=== PATIENT | male | born 2000 | race Caucasian/White ===

== ENCOUNTER 2022-11-08 20:56 | Emergency (ER) | payer OTHER, SELFPAY ==
[2022-11-08 20:58] VITALS: BP 132/94; PULSE 111; RESP 24; TEMP 37.9; O2SAT 99; BMI 13.5
[2022-11-08] MEDS: 0.9% Normal Saline 1,000 ML 999 ML IV ×2 (21:00→22:55)
--- NOTE | 2022-11-08 21:23 | EKG12_ITS ---
Test Reason : DYSRHYTHMIA Blood Pressure : / mmHG Vent. Rate : 117 BPM Atrial Rate : 117 BPM P-R Int : 134 ms QRS Dur : 078 ms QT Int : 324 ms P-R-T Axes : 067 083 069 degrees QTc Int : 451 ms Sinus tachycardia Otherwise normal ECG Confirmed by SILVIA KNAPP, JUSTINO ([id number]), marketing editor JOSE CRUZ HALE ([id number]) on 11/11/2022 2:17:09 PM Referred By: VALERIE Confirmed By:JUSTINO VEGA MD
--- NOTE | 2022-11-08 21:23 | CT_ITS ---
EXAM: CT ABDOMEN AND PELVIS WITH INTRAVENOUS CONTRAST CLINICAL INDICATION: abdominal pain TECHNIQUE: Helically acquired images were obtained of the abdomen and pelvis with intravenous contrast. This CT exam was performed using one or more of the following dose reduction techniques: automated exposure control, adjustment of the mA and/or kV according to patient size, and/or use of iterative reconstruction technique. This report was created using [employer] report generation technology. CONTRAST: IV 100mL [id number]-370 RADIATION DOSE: Total DLP: 299.68 mGy-cm. COMPARISON: Portable chest radiograph of this date. FINDINGS: LOWER THORAX: Evaluation of the lung bases shows patchy airspace disease in the right lower lobe as noted on the preceding portable chest radiograph. Additional mild patchy airspace disease is seen within the left lower lobe posteriorly as well as within the right middle lobe indicating additional pneumonia. No pleural effusion. No coronary artery calcification is visualized. No significant pericardial effusion. ABDOMEN: LIVER: Right hepatic lobe is slightly elongated measuring 17.2 cm in cephalocaudal dimension. Hepatic veins and portal veins enhance normally. GALLBLADDER AND BILE DUCTS: Unremarkable. No calcified gallstones. No gallbladder distention or wall edema. No intra- or extrahepatic biliary ductal dilation. PANCREAS: Unremarkable. No focal cystic or solid mass. SPLEEN: Spleen is enlarged measuring 15.6 cm in cephalocaudal dimension. ADRENALS: Unremarkable. No nodules. KIDNEYS AND URETERS: Unremarkable. Normal renal size and position. No hydronephrosis. No renal or obstructing ureteral stones. STOMACH AND BOWEL: No stomach or bowel distention. No focal inflammatory change. Air-fluid levels within the pelvic small bowel loops and proximal colon. PELVIS: APPENDIX: Normal. No evidence of acute appendicitis. BLADDER: Partially distended urinary bladder is unremarkable. REPRODUCTIVE: Unremarkable as visualized. No mass. ABDOMEN and PELVIS: INTRAPERITONEAL SPACE: Unremarkable. Trace of ascites in the dependent portion of pelvis. No free air. BONES/JOINTS: Unremarkable. No suspicious lytic or blastic abnormality. SOFT TISSUES: Unremarkable. No discrete abdominal or pelvic wall hernia. VASCULATURE: Normal caliber abdominal aorta. LYMPH NODES: Unremarkable. No enlarged lymph nodes. CT/Abdomen/Pelvis W IV Cont ONLY IMPRESSION: Patchy pneumonia within both lower lobes and right middle lobe. Normal appendix. Large and small bowel air-fluid levels, suggesting a mild ileus or gastroenteritis. No findings of small bowel obstruction. Mild hepatosplenomegaly. No adenopathy. Electronically Signed: Madi Mckeon MD at 23:10 EDT ,
[2022-11-08] MEDS: Morphine 4 MG/ML Syringe IV (21:28)
[2022-11-08] MEDS: Ondansetron 4 MG/2 ML Vial IV (21:28)
[2022-11-08] MEDS: Acetaminophen 500 MG Tablet 1000 MG PO (21:29)
--- NOTE | 2022-11-08 21:30 | EDS_ITS ---
HPI History of Present Illness Chief Complaint: Abd Pain Narrative Narrative: 22-year-old male presenting with abdominal pain. He states this started about 2 hours ago and was acute. He describes it as periumbilical. He states he does have a cough for a couple of weeks now. He does not know if he had a fever at home because he does not have a thermometer. Patient states he does have history of tummy aches. He states he is not nauseous or vomiting. He denies constipation or diarrhea. He denies surgical history to his abdomen. He states he has no known medical problems. Denies urinary complaints. PFSH PFS Medical History Smoker Home Medications levofloxacin 500 mg tablet 500 mg PO DAILY #6 tabs 11/09/22 [Rx Last Taken Unknown] Allergy/AdvReac Type Severity Reaction Status Date / Time No Known Allergies Allergy Verified 11/08/22 20:58 Social History Smoking Status: Current every day smoker tobacco type: cigarettes ROS ROS ED Constitutional Constitutional ED: Reports chills and fever(s) Eyes Eyes: Denies change in vision or diplopia ENT ENT ED: Denies rhinorrhea Cardiovascular Cardiovascular: Denies chest pain or palpitations Respiratory/Chest Respiratory/Chest: Reports cough; Denies dyspnea Gastrointestinal Gastrointestinal: Reports abdominal pain; Denies constipation, melena, nausea or vomiting Genitourinary Genitourinary ED: Denies dysuria Musculoskeletal Musculoskeletal: Denies arthralgias or back pain Integumentary Denies abscess Neurologic Neurologic: Denies headache(s) or paresthesias Psychiatric Psychiatric: Denies anxiety or depression EXAM Physical Exam Const Vital Signs: 11/08/22 20:58 11/08/22 22:11 11/08/22 22:19 Temperature 100.2 F H Temperature Source Temporal Pulse Rate 111 H 99 Respiratory Rate 24 H 24 H Blood Pressure 132/94 H 93/73 97/75 Blood Pressure Mean 106 79 82 Pulse Ox 99 100 Oxygen Delivery Method Room Air Room Air Room Air 11/08/22 23:11 11/08/22 23:19 11/08/22 23:51 Temperature 99.7 F H 98.7 F Temperature Source Oral Oral Pulse Rate 75 79 88 Respiratory Rate 15 20 H 8 L Blood Pressure 95/58 L 108/68 Blood Pressure Mean 70 81 Pulse Ox 97 92 92 Oxygen Delivery Method Room Air Room Air Room Air Positive well nourished General Appearance ED: NAD HEENT Reports moist mucous membranes Eyes PERRL and EOMs intact bilaterally Chest Wall inspection of chest normal Resp normal respiratory effort and clear to auscultation bilaterally Effort and Inspection: Negative for retractions Auscultation: Negative for rales, rhonchi or wheezes Cardio regular rate and regular rhythm GI normal to inspection, nondistended, normoactive bowel sounds Neuro oriented x3 and CN's II-XII intact bilaterally Sensorium / Orientation: alert Psych mental status grossly normal Skin no rashes or lesions noted General Skin Exam: Negative for jaundice MDM MDM MDM Narrative Medical decision making narrative: 22-year-old male with history of cough for a week and 1/2 to 2 weeks presenting with acute onset abdominal pain which is above the umbilicus. He does have tenderness in this region. No peritoneal signs. Patient tachycardic, tachypneic, febrile. Sepsis work-up was initiated. Differential includes but is not limited to appendicitis, diverticulitis, small bowel obstruction, perforated bowel, colitis, viral syndrome, kidney stone, UTI, pyelonephritis. Patient initially treated with morphine, Zofran, Tylenol 1 g p.o. Patient was given 2 L of normal saline.. CBC shows a leukocytosis of 14.3. Hemoglobin hematocrit stable. Platelets are normal. Slight left shift. Coagulation studies are normal. Renal function and electrolytes unremarkable exception of potassium 3.3. Lactic acid negative at 1.7. Urinalysis negative for infection. Chest x-ray on my interpretation shows right lower lobe pneumonia. I did obtain a CT abdomen pelvis with IV contrast due to the patient's abdominal pain and this does not show any acute abdominal finding but does note patchy pneumonia in the right middle lobe, right lower lobe, left lower lobe. It also shows what looks like gastroenteritis. I had the patient ambulated in the emergency room and the nurse that ambulated and stated that he was not getting a good waveform on the ambulatory pulse ox but the patient tolerated this well and he does not look dyspneic. He states that his oxygen was fluctuating from 70s to 80s. Immediately when he put him in the bed and change the pulse ox he was 9596% on room air. He does not want to stay in the hospital. He is young and otherwise healthy. I counseled him that we will start him on antibiotics. He is also to alternate Tylenol and ibuprofen to treat his fever, body aches, abdominal pain. Return precautions were discussed. He is well-appearing and his vital signs of normalized. He states his abdominal pain is gone. Impression: 1. Bilateral pneumonia 2. Leukocytosis 3. Abdominal pain Lab Data Labs: Laboratory Results - last 24 hr 11/08/22 11/08/22 11/08/22 21:07 21:30 21:30 WBC 14.3 H RBC 4.52 L Hgb 13.9 Hct 40.9 MCV 90.5 MCH 30.8 MCHC 34.0 RDW Std Deviation 38.0 RDW Coeff of Andi 11.4 L Plt Count 290 MPV 10.0 Immature Gran % (Auto) 0.400 Neut % (Auto) 75.7 H Lymph % (Auto) 11.7 L [place] % (Auto) 10.9 H Eos % (Auto) 1.1 Baso % (Auto) 0.2 Absolute Neuts (auto) 10.8 H Absolute Lymphs (auto) 1.67 Nucleated RBC % 0 Differential Comment SCANNED Diff Path Review May foll PT 14.7 INR 1.2 APTT 32.5 Sodium Potassium Chloride Carbon Dioxide Anion Gap BUN Creatinine Estim Creat Clear Calc Est GFR (MDRD) Af Amer Est GFR (MDRD) Non-Af BUN/Creatinine Ratio Glucose Lactic Acid Cancelled Calcium Total Bilirubin AST ALT Alkaline Phosphatase Troponin I High Sens Total Protein Albumin Globulin Albumin/Globulin Ratio Urine Color Urine Clarity Urine pH Ur Specific [place] Urine Protein Urine Glucose (UA) Urine Ketones Urine Occult Blood Urine Nitrite Urine Bilirubin Urine Urobilinogen Ur Leukocyte Esterase Urine RBC Urine WBC Ur Squamous Epith Cells Urine Bacteria Urine Mucus 11/08/22 11/08/22 11/08/22 21:30 21:50 22:06 WBC RBC Hgb Hct MCV MCH MCHC RDW Std Deviation RDW Coeff of Andi Plt Count MPV Immature Gran % (Auto) Neut % (Auto) Lymph % (Auto) [place] % (Auto) Eos % (Auto) Baso % (Auto) Absolute Neuts (auto) Absolute Lymphs (auto) Nucleated RBC % Differential Comment Diff Path Review PT INR APTT Sodium 136 Potassium 3.3 L Chloride 101 Carbon Dioxide 23.0 Anion Gap 12 BUN 6 L Creatinine 0.99 Estim Creat Clear Calc 96.52 Est GFR (MDRD) Af Amer 121 Est GFR (MDRD) Non-Af 100 BUN/Creatinine Ratio 6.1 L Glucose 120 H Lactic Acid 1.7 Calcium 9.0 Total Bilirubin 0.90 AST 17 ALT 18 Alkaline Phosphatase 71 Troponin I High Sens < 3 L Total Protein 8.0 Albumin 3.3 Globulin 4.7 H Albumin/Globulin Ratio 0.7 L Urine Color Yellow Urine Clarity Clear Urine pH 8.0 Ur Specific [place] 1.010 Urine Protein Negative Urine Glucose (UA) Normal Urine Ketones 15 H Urine Occult Blood Negative Urine Nitrite Negative Urine Bilirubin Negative Urine Urobilinogen 4 H Ur Leukocyte Esterase Negative Urine RBC 0 SEEN Urine WBC 0 SEEN Ur Squamous Epith Cells 0 SEEN Urine Bacteria 0 SEEN Urine Mucus 0 SEEN Radiography Diagnostic Testing: Clinical Impression(s) from Imaging Studies Abdomen/Pelvis CT 11/08/22 21:23 IMPRESSION: Patchy pneumonia within both lower lobes and right middle lobe. Normal appendix. Large and small bowel air-fluid levels, suggesting a mild ileus or gastroenteritis. No findings of small bowel obstruction. Mild hepatosplenomegaly. No adenopathy. Electronically Signed: Madi Mckeon MD at 23:10 EDT , Chest X-Ray 11/08/22 21:55 IMPRESSION: Findings of minimal pneumonia at the right lung base medially. Electronically Signed: Madi Mckeon MD at 22:13 EDT , Discharge Plan Triage Chief Complaint: Abd Pain Other Complaint: Cough ED Provider: Kilo Russo Dx/Rx/DC Orders Instructions: ED Pneumonia (Adult), ED Abdominal Pain Unkn Cause Male... Prescriptions: New levofloxacin 500 mg tablet 500 mg PO DAILY Qty: 6 0RF Primary Care Provider: Magan Beltrán Referrals: Magan Beltrán DO [Primary Care Provider] - Disposition Disposition: Home, Self Care
[2022-11-08 21:49] LABS: Absolute Lymphocyte Count 1.67 X10^3/uL (0.83-4.51); Absolute Neutrophil Count 10.8 X10^3/uL (2.0-7.7); Basophil# 0.03 X10^3/uL; Basophil% 0.2 % (0-1); Eosinophil# 0.16 X10^3/uL; Eosinophils% 1.1 % (0-5); Hematocrit 40.9 % (40-54); Hemoglobin 13.9 g/dL (13.0-16.5); Lymphocyte # 1.67 X10^3/ul (0.83-4.51); Lymphocyte % 11.7 % (19-41); Mean Corpuscular Hgb 30.8 pg (27.0-32.0); Mean Corpuscular Volume 90.5 fL (80-94); Monocyte# 1.56 X10^3/uL; Monocyte% 10.9 % (0-10); NRBC Flagged by Analyzer 0 % (0-5); Neutrophil # 10.83 X10^3/uL (2.7-7.7); Neutrophil % 75.7 % (47-70); POSITIVE DIFFERENTIAL YES; Platelet Count 290 K/mm3 (150-450); RBC Distribution Width CV 11.4 % (11.6-14.6); Red Blood Count 4.52 M/mm3 (4.6-6.2); White Blood Count 14.3 K/mm3 (4.4-11.0)
[2022-11-08 21:52] LABS: Differential Indicated SCAN CRITERIA MET
--- NOTE | 2022-11-08 21:55 | RAD_ITS ---
EXAM: XR CHEST, 1 VIEW CLINICAL INDICATION: cough TECHNIQUE: Frontal view of the chest. This report was created using [employer] report generation technology. COMPARISON: None. FINDINGS: LUNGS AND PLEURAL SPACES: Minimal patchy airspace disease and with slight asymmetric prominence of the bronchovascular markings within the right lower lung medially. No pneumothorax. No effusion. HEART: Unremarkable. Cardiac silhouette not enlarged. Normal pulmonary vasculature. No silhouetting of the heart borders. MEDIASTINUM: Central airways and mediastinal contour are unremarkable. Trachea is midline. BONES/JOINTS: No acute osseous abnormality. SOFT TISSUES: Unremarkable. RAD/Chest 1 View (Portable) IMPRESSION: Findings of minimal pneumonia at the right lung base medially. Electronically Signed: Madi Mckeon MD at 22:13 EDT ,
[2022-11-08 21:58] LABS: Bacteria 0 SEEN /hpf (None Seen); Mucous, Urine 0 SEEN /hpf (<or=2+); Red Blood Cells-Urine 0 SEEN /hpf (0-5); Squamous Epithelial Cells - UA 0 SEEN /hpf (0-5); White Blood Cells 0 SEEN /hpf (0-5)
[2022-11-08 22:05] LABS: International Normalized Ratio 1.2; Partial Thromboplast Time 32.5 Seconds (24.1-36.2); Prothrombin Time (Protime)PT. 14.7 SECONDS (11.7-14.9)
[2022-11-08 22:10] LABS: ALB/GLOB Ratio 0.7 RATIO (0.9-2.4); AST(SGOT) 17 U/L (15-37); Alanine Aminotransfer ALT/SGPT 18 U/L (16-61); Albumin, Serum 3.3 g/dL (3.2-5.0); Alkaline Phosphatase 71 U/L (45-117); Anion Gap 12 (5-15); BUN 6 mg/dL (7-18); BUN/Creat Ratio 6.1 RATIO (10-20); Chloride 101 mmol/L (98-107); Creatinine, Serum 0.99 mg/dL (0.70-1.30); EST Glomerular Filtration Rate 100 mL/min (>60); Est Glom Filt Rate - Afr Amer 121 mL/min (>60); Estimated Creatinine Clearance 96.52 ml/min; Globulin 4.7 g/dL (2.2-4.2); Glucose 120 mg/dL (74-106); Potassium 3.3 mmol/L (3.5-5.1); Sodium Level 136 mmol/L (136-145); Troponin-I HS < 3 pg/mL (3.0-78.0)
[2022-11-08 22:11] VITALS: BP 93/73; PULSE 99; RESP 24; O2SAT 100
[2022-11-08 22:11] LABS: Color, Urine Yellow (Yellow); Glucose, Dipstick Normal (Normal); Ketone-Dipstick 15 mg/dl (Negative); Leukocyte Esterase-Dipstick Negative /ul (Negative); Nitrite-Dipstick Negative (Negative); Occult Blood-Urine Negative /ul (Negative); Protein-Dipstick Negative (Negative); Urine Bilirubin Dipstick Negative (Negative); Urine Clarity Clear (Clear); Urine Urobilinogen 4 mg/dl (Normal)
[2022-11-08 22:19] VITALS: BP 97/75
[2022-11-08 22:36] LABS: Differential Comment SCANNED
[2022-11-08 22:38] LABS: Lactic Acid 1.7 mmol/L (0.4-1.9)
[2022-11-08 23:11] VITALS: PULSE 75; RESP 15; O2SAT 97
[2022-11-08 23:19] VITALS: BP 95/58; PULSE 79; RESP 20; TEMP 37.6; O2SAT 92
[2022-11-08 23:51] VITALS: BP 108/68; PULSE 88; RESP 8; TEMP 37.1; O2SAT 92; O2SAT 98
[2022-11-08] MEDS: fentaNYL 100 MCG/2 ML Ampul 50 MCG IV (23:52)
[2022-11-09] MEDS: levoFLOXacin 500 MG Tablet PO (00:25)
[2022-11-09 00:31] VITALS: BP 107/72; PULSE 70; RESP 12; O2SAT 96
[2022-11-12 13:34] LABS: Pathologist Review Reviewed
== END 2022-11-09 00:56 | disposition home or self-care (01) ==
PROVIDERS: Emergency Provider Student in an Organized Health Care Education/Training Program; PCP Family Medicine; Visit Provider Student in an Organized Health Care Education/Training Program
DX: J18.9 Pneumonia, unspecified organism (principal); R10.33 Periumbilical pain; D72.829 Elevated white blood cell count, unspecified; F17.210 Nicotine dependence, cigarettes, uncomplicated
CPT/HCPCS: 71045; 74177; 80053; 81001; 83605; 84484; 85025; 85610; 85730; 87040; 87086; 87428; 93005; 96361; 96374; 96375; 99285; J7030; Q9967; A4216; J2405